=== PATIENT | male | born 1955 | race Caucasian/White ===

== ENCOUNTER 2017-08-18 07:34 | Day surgery (SDC) | payer OTHER ==
[2017-08-18] MEDS ORDERED: MIDAZOLAM 1 MG/ML 2 ML INJ ×2 (10:11)
[2017-08-18] MEDS ORDERED: FENTAnyl 50 MCG/ML VIAL (10:11)
== END 2017-08-18 10:30 | disposition home or self-care (01) ==
LOC: GIL 07:34
DX: R19.4 Change in bowel habit (principal); K64.8 Other hemorrhoids; K63.3 Ulcer of intestine; Z85.038 Personal history of other malignant neoplasm of large intestine
CPT/HCPCS: 45380; 88305